=== PATIENT | male | born 1975 | race African-American/Black ===

== ENCOUNTER 2017-03-22 09:58 | Emergency (ER) | payer SELFPAY ==
[~2017-03-22] VITALS: Ht 180.3 cm; Wt 90.0 kg
[2017-03-22] MEDS ORDERED: KETOROLAC 60MG/2ML VIAL IM ONE (11:30)
[2017-03-22 14:24] VITALS: BP 139/74
== END 2017-03-22 16:01 | disposition home or self-care (01) ==
LOC: ER 10:04
DX: S93.402A Sprain of unspecified ligament of left ankle, initial encounter (principal); Y04.0XXA Assault by unarmed brawl or fight, initial encounter; Y93.89 Activity, other specified; Y92.89 Other specified places as the place of occurrence of the external cause; F17.210 Nicotine dependence, cigarettes, uncomplicated
CPT/HCPCS: 73610; 96372; 99284; J1885; Z7610